=== PATIENT | female | born 1960 | race Caucasian/White ===

== ENCOUNTER → 2016-08-31 | Outpatient (CLI) | payer BC ==
[~2016-08-31] MED LIST: ASPIRIN PO; CALCIUM PLUS D; CENTRUM PO; CRESTOR PO; FISH OIL 1,001000 MG PO; LOPID600 MG PO; NITROGYLCERIN SUBLINGUAL; PLAVIX PO; SYNTHROID0.05 MG PO; TOPROL XL PO; VIT C PO; ZANTAC PO
--- NOTE | ~2016-08-31 | MY11 ---
[facility] A Service of [facility] RADIOLOGY TEXT RESULTS PATIENT: DALTON NÚÑEZ LOCATION: [facility] : 64 UNIT #: [id number] AGE: [address]: ANALY ROCK APRN SEX: F ORDER DR: [id number] [address] [address] [id number] O MR#: [id number] Acc #: [id number] NAME: DALTON NÚÑEZ : 1960 SEX: F STUDY DATE/TIME: 08/31/2016 10:14 UNIT: [facility] ROOM: STUDY DESCRIPTION: MY Mammogram Screening Dig Bryan Attending Physician: Analy Rock Aprn Referring Physician: Analy Rock Aprn Ordering Physician: Analy Rock Aprn Primary Care Physician: Jocelyn Canales M.D. MEDICAL IMAGING REPORT This report is preliminary unless electronic signature is present. EXAM Digital screening mammogram, 08/31/2016, [facility] HISTORY A 56 year old woman, no risk elevation. Annual screening COMPARISON STUDIES 05/02/2009, 01/18/2012, 01/19/2013. FINDINGS Digital imaging of each breast was completed utilizing a two-view examination of each breast in craniocaudal and mediolateral-oblique projections. Review and interpretation of digital mammograms include a second review in conjunction with FDA-approved CAD device. There is a normal parenchymal presentation bilaterally consistent with the patient's age. There are no breast masses imaged and no parenchymal asymmetry is visualized. There are no suspicious microcalcifications and I see no focal architectural disturbance. IMPRESSION Negative screening digital mammogram. One-year followup recommended. Patients over the age of 40 are entered into a reminder system with target due date for the next mammogram. A result letter will also be sent to the patient. BIRADS: 1 Negative Dictated by... [facility] A Service of [facility] RADIOLOGY TEXT RESULTS PATIENT: DALTON NÚÑEZ LOCATION: [facility] : 64 UNIT #: [id number] AGE: [address]: ANALY ROCK APRN SEX: F ORDER DR: Zhang Roth M.D. THIS IS AN ELECTRONICALLY VERIFIED REPORT Zhang Roth M.D. at 08/31/2016 3:03 PM Dennis TD: 08/31/2016 12:22 JOB #: [id number] MEDICAL IMAGING REPORT Page 1 of 1
== END | disposition home or self-care (01) ==
LOC: SMAM 09:29
DX: Z12.31 Encounter for screening mammogram for malignant neoplasm of breast (principal)
CPT/HCPCS: G0202